=== PATIENT | female | born 1975 | race Caucasian/White ===

== ENCOUNTER 2017-11-12 16:53 | Inpatient (IN) | END 2017-11-13 16:30 | disposition home or self-care (01) | DRG 313 ==

== ENCOUNTER 2018-05-19 09:49 | Emergency (ER) | payer MEDICAID ==
[~2018-05-19] VITALS: Ht 160 cm; Wt 92.3 kg
[~2018-05-19 09:49] MED LIST: ATOR10TA65 PO; DOCU-144 PO; FER325 PO
[2018-05-19 10:00] VITALS: Ht 160 cm; Wt 92.3 kg
--- NOTE | 2018-05-19 12:43 | ERD ---
ER Documentation Chief Complaint Chief Complaint shortness of breath - hx of anemia - had blood transfusion 6 months ago HPI Patient is a 43-year-old female with anemia who presents saying "I think I have anemia". She was having shortness of breath and migraine headaches as well as feeling tired. She denies any bleeding at this time. The patient does not currently have a primary doctor. She has had no treatment as of yet. ROS All systems reviewed and are negative except as per history of present illness. Medications Home Meds Discontinued Scripts Docusate Sodium* (Colace*) 100 Mg Capsule, 100 MG PO BID PRN for CONSTIPATION, #60 CAP Prov:REGIDORFRANKY 11/13/17 Ferrous Sulfate* (Ferrous Sulfate*) 325 Mg Tabec, 325 MG PO TID, #90 TAB Prov:REGIDORFRANKY 11/13/17 Atorvastatin (Atorvastatin) 10 Mg Tablet, 10 MG PO HS, #30 TAB Prov:REGIDORFRANKY 11/13/17 Allergies Allergies: Coded Allergies: No Known Drug Allergies (Verified Allergy, Mild, 11/11/17) PMhx/Soc History of Surgery: Yes (C SECTION) Anesthesia Reaction: No Hx Neurological Disorder: No Hx Respiratory Disorders: No Hx Cardiac Disorders: No Hx Psychiatric Problems: No Hx Miscellaneous Medical Probl: Yes (ANEMIA) Hx Alcohol Use: Yes (OCCASIONAL) Hx Substance Use: No Hx Tobacco Use: Yes Smoking Status: Former smoker FmHx Family History: diabetes Physical Exam Vitals Vital Signs Date Temp Pulse Resp B/P (MAP) Pulse Ox O2 O2 Flow FiO2 Time Delivery Rate 05/19/18 98.6 89 20 135/85 97 Room Air 13:34 (102) 05/19/18 98.3 97 19 140/92 96 10:00 (108) Physical Exam Const: No acute distress Head: Atraumatic Eyes: Normal Conjunctiva ENT: Normal External Ears, Nose and Mouth. Neck: Full range of motion. No meningismus. Resp: Clear to auscultation bilaterally Cardio: Regular rate and rhythm, no murmurs Abd: Soft, non tender, non distended. Normal bowel sounds Skin: No petechiae or rashes Back: No midline or flank tenderness Ext: No cyanosis, or edema Neur: Awake and alert Psych: Normal Mood and Affect Result Diagram: 05/19/18 1126 05/19/18 1127 Results 24 hrs Laboratory Tests Test 05/19/18 11:26 05/19/18 11:27 05/19/18 11:37 White Blood Count 10.7 10^3/ul Red Blood Count 4.12 10^6/ul Hemoglobin 9.7 g/dl Hematocrit 32.7 % Mean Corpuscular Volume 79.4 fl Mean Corpuscular Hemoglobin 23.5 pg Mean Corpuscular 29.7 g/dl Hemoglobin Concent Red Cell Distribution Width 17.0 % Platelet Count 367 10^3/UL Mean Platelet Volume 9.7 fl Immature Granulocytes % 0.400 % Neutrophils % 59.7 % Lymphocytes % 32.5 % Monocytes % 6.1 % Eosinophils % 0.8 % Basophils % 0.5 % Nucleated Red Blood Cells % 0.0 /100WBC Immature Granulocytes # 0.040 10^3/ul Neutrophils # 6.4 10^3/ul Lymphocytes # 3.5 10^3/ul Monocytes # 0.7 10^3/ul Eosinophils # 0.1 10^3/ul Basophils # 0.1 10^3/ul Nucleated Red Blood Cells # 0.0 10^3/ul Prothrombin Time 12.9 Sec Prothrombin Time Ratio 1.0 INR International 0.96 Normalized Ratio Activated Partial Thromboplast 25.5 Sec Time Sodium Level 141 mmol/L Potassium Level 4.0 mmol/L Chloride Level 102 mmol/L Carbon Dioxide Level 27 mmol/L Anion Gap 12 Blood Urea Nitrogen 9 mg/dl Creatinine 0.59 mg/dl Est Glomerular Filtrat > 60 mL/min Rate mL/min Glucose Level 130 mg/dl Calcium Level 9.8 mg/dl Total Bilirubin 0.1 mg/dl Direct Bilirubin 0.00 mg/dl Indirect Bilirubin 0.1 mg/dl Aspartate Amino Transf (AST/SGOT) 101 IU/L Alanine 95 IU/L Aminotransferase (ALT/SGPT) Alkaline Phosphatase 134 IU/L Troponin I < 0.012 ng/ml Total Protein 8.6 g/dl Albumin 4.3 g/dl Globulin 4.30 g/dl Albumin/Globulin Ratio 1.00 POC Beta HCG, Qualitative NEGATIVE Procedures/MDM EKG read by me: Rate/Rhythm: Regular rate and rhythm at a rate of 79 Intervals: Normal Impression: No evidence of ischemia or arrhythmia Chest x-ray negative per radiology. Patient is a 43-year-old female who presents with shortness of breath. She had mild anemia but does not require transfusion at this time. EKG and chest x-ray are negative. Troponin was negative. At this point I doubt acute coronary syndrome, pneumonia, pneumothorax, pulmonary embolism, or aortic dissection. The patient will be discharged but will need to follow-up with a local clinics within 24-48 hours if symptoms worsen. The patient understands the plan and is okay for discharge. Departure Diagnosis: Primary Impression: Chest pain Chest pain type: unspecified Qualified Codes: R07.9 - Chest pain, unspecified Additional Impression: Shortness of breath Condition: Fair Patient Instructions: Chest Pain, Uncertain Cause Referrals: [facility] YOU HAVE RECEIVED A MEDICAL SCREENING EXAM AND THE RESULTS INDICATE THAT YOU DO NOT HAVE A CONDITION THAT REQUIRES URGENT TREATMENT IN THE EMERGENCY DEPARTMENT. FURTHER EVALUATION AND TREATMENT OF YOUR CONDITION CAN WAIT UNTIL YOU ARE SEEN IN YOUR DOCTORS OFFICE WITHIN THE NEXT 1-2 DAYS. IT IS YOUR RESPONSIBILITY TO MAKE AN APPOINTMENT FOR FOLOW-UP CARE. IF YOU HAVE A PRIMARY DOCTOR --you should call your primary doctor and schedule an appointment IF YOU DO NOT HAVE A PRIMARY DOCTOR YOU CAN CALL OUR PHYSICIAN REFERRAL HOTLINE AT IF YOU CAN NOT AFFORD TO SEE A PHYSICIAN YOU CAN CHOSE FROM THE FOLLOWING [facility] [address] [facility]. [facility] [address] [facility]. [facility] [address] [facility] [facility] [address] [facility]. [facility] [address] [facility]. [facility]. [address] Additional Instructions: Call your primary care doctor TOMORROW for an appointment during the next 1-2 days.See the doctor sooner or return here if your condition worsens before your appointment time. DUNCAN MARINELLI MD May 19, 2018 12:43
[2018-05-19 13:34] VITALS: BP 135/85; PULSE 89; RESP 20
== END 2018-05-19 12:40 | disposition home or self-care (01) ==
LOC: E/R 09:49
DX: R07.9 Chest pain, unspecified (principal); Z87.891 Personal history of nicotine dependence
CPT/HCPCS: 36415; 71045; 80053; 81025; 84484; 85025; 85610; 85730; 86850; 86900; 86901; 93005; Z7502